=== PATIENT | female | born 1965 | race Caucasian/White ===

== ENCOUNTER 2021-05-17 08:55 | Outpatient (CLI) | payer OTHER, SELFPAY | END 2021-05-17 08:56 | disposition home or self-care (01) | LOC: ANHAUDASC 08:57 | PROVIDERS: PCP Otolaryngology; Visit Provider Otolaryngology | DX: H90.3 Sensorineural hearing loss, bilateral (principal) | CPT/HCPCS: 92557; 92567 ==

== ENCOUNTER 2021-06-21 08:53 | Outpatient (RCR) | payer OTHER, SELFPAY | END 2021-09-19 23:59 | disposition home or self-care (01) | LOC: ANHAUDASC 08:53 | PROVIDERS: PCP Otolaryngology; Visit Provider Otolaryngology | DX: Z46.1 Encounter for fitting and adjustment of hearing aid (principal) | CPT/HCPCS: V5160; V5261 ==